=== PATIENT | female | born 1955 | race Caucasian/White ===

== ENCOUNTER 2017-09-30 13:30 | Emergency (ER) | payer MEDICARE ==
[~2017-09-30] VITALS: Ht 167.6 cm; Wt 136.1 kg
--- NOTE | 2017-09-30 14:40 | EKG ---
[address] [id number] Test Date: 2017-09-30 Test Time: 14:19:18 Pat Name: CLAUDIA MENDOZA Department: Room: Gender: F [facility] Supervisor: : 1955 Requested By: SIMON VALERA Order Number: [id number] Reading MD: Measurements Intervals [place] Rate: 91 P: 37 NV: 134 QRS: 41 QRSD: 80 T: 50 QT: 340 QTc: 420 Interpretive Statements SINUS RHYTHM QRS(T) CONTOUR ABNORMALITY CONSIDER ANTEROLATERAL MYOCARDIAL DAMAGE POSSIBLY ABNORMAL ECG RI6.01 No previous ECG available for comparison
--- NOTE | 2017-09-30 15:04 | RAD ---
Exam: AP portable chest History: Cough. Comparison: None. Findings: Patient is rotated. The heart and mediastinal structures are within normal limits for size. Lungs are without infiltrate. No pleural effusion or pneumothorax is identified. There is deformity and decreased volume of the proximal left humerus, presumably chronic. Impression: 1. No acute cardiopulmonary process. 2. Deformity of the proximal left humerus, might be due to a remote traumatic injury. Recommend clinical correlation. Electronically signed by: Marcus Novak MD (09/30/2017 3:00 PM) [place] [id number]
[2017-09-30] MEDS ORDERED: HYDROcodone/APAP 10/325 1 TAB TABLET PO ONE (15:45)
--- NOTE | 2017-09-30 16:35 | PHYS DOC ---
Past History Past Medical History: Anxiety, Depression, GERD, High Cholesterol, Hypertension , Hypothyroid Past Surgical History: Cholecystectomy, Alcohol Use: None Drug Use: None Adult General Chief Complaint Chief Complaint: PSYCH EVALUATION HPI HPI Patient is a 62 year old F who presents from rehabilitation facility after having a tibial fracture surgically repaired last month, for psychiatric evaluation due to suicidal ideations. She states that yesterday she became impulsive due to multiple recent family issues. She states that she used fingernail clippers to try to cut her wrist. She states that they were so dull that there was not even a elena made on her wrist. She currently is not full weight-bearing due to her tibia fracture. Review of Systems Review of Systems Constitutional: Denies fever or chills [] Eyes: Denies change in visual acuity, redness, or eye pain [] HENT: Denies nasal congestion or sore throat [] Respiratory: Denies cough or shortness of breath [] Cardiovascular: No additional information not addressed in HPI [] GI: Denies abdominal pain, nausea, vomiting, bloody stools or diarrhea [] : Denies dysuria or hematuria [] Musculoskeletal: Denies back pain Integument: Denies rash or skin lesions [] Neurologic: Denies headache, focal weakness or sensory changes [] Endocrine: Denies polyuria or polydipsia [] All other systems were reviewed and found to be within normal limits, except as documented in this note. Family History Family History pertinent medical history was reported Current Medications Current Medications Current Medications Medications (Trade) Dose Ordered Sig/[facility] Start Time Stop Time Status Last Admin Dose Admin Acetaminophen/ Hydrocodone Bitart (Lortab 10/325) 2 tab 1X ONCE 09/30/17 15:45 09/30/17 15:46 DC 09/30/17 15:47 2 TAB Allergies Allergies Allergies Coded Allergies Type Severity Reaction Last Updated Verified Macrolide Antibiotics Allergy Intermediate 09/30/17 Yes clarithromycin Allergy Unknown 09/30/17 Yes arnol Allergy Unknown 09/30/17 Yes naproxen Allergy Unknown 09/30/17 Yes Physical Exam Physical Exam Constitutional: Well developed, well nourished, no acute distress, non-toxic appearance. [] HENT: Normocephalic, atraumatic, bilateral external ears normal, oropharynx moist, no oral exudates, nose normal. [] Eyes: EOMI, conjunctiva normal, no discharge. [] Neck: Normal range of motion, no tenderness, supple, no stridor. [] Cardiovascular:Heart rate regular rhythm, Lungs & Thorax: Bilateral breath sounds clear to auscultation [] Abdomen: Bowel sounds normal, soft, no tenderness, no masses, no pulsatile masses. [] Skin: Warm, dry, no erythema, no rash. [] Back: No tenderness, no CVA tenderness. [] Extremities: no cyanosis, no clubbing, ROM intact, no edema. [] Right leg surgical scars clean dry and intact without signs of infection Neurologic: Alert and oriented X 3, normal motor function, normal sensory function, no focal deficits noted. [] Psychologic: Affect normal, judgement normal, mood normal. [] Current Patient Data Vital Signs Vital Signs Date Time Temp Pulse Resp B/P (MAP) Pulse Ox O2 Delivery O2 Flow Rate FiO2 09/30/17 15:47 20 95 09/30/17 13:30 98.3 93 Room Air Lab Results Outside labs reviewed from [facility]. Reports were scanned into her chart. Please review them for specifics Radiology/Procedures Radiology/Procedures Chest x-ray Impressions: No acute disease Course & Med Decision Making Course & Med Decision Making Pertinent Labs and Imaging studies reviewed. (See chart for details) Care was transferred to Dr. Chavira pending psych evaluation Patient care transferred to [facility] at 1804 follow-up with psych evaluation. Patient was evaluated by Dr. Nash at 2148 and determined that she is not contraceptive and can be discharged to rehabilitation facility. Dragon Disclaimer Dragon Disclaimer This electronic medical record was generated, in whole or in part, using a voice recognition dictation system. Departure Departure: Impression: Primary Impression: Encounter for psychological evaluation Disposition: HOME, SELF-CARE (have possibility at) Condition: STABLE Additional Instructions: Follow-up with rehabilitation facility and your physician instruction SIMON VALERA MD Sep 30, 2017 16:35 SASCHA CHAVIRA MD Sep 30, 2017 22:04
[2017-09-30 18:27] LABS: CLARITY,URINE HAZY; COLOR,URINE STRAW; GLUCOSE,URINE NEG (NEG)
[2017-09-30 18:28] LABS: BILIRUBIN,URINE NEG (NEG)
[2017-09-30 18:29] LABS: BACTERIA,URINE MANY /HPF (0-FEW); NITRITE,URINE POS (NEG); SQUAMOUS EPITHELIAL CELL,UR MANY /LPF; UROBILINOGEN,URINE 0.2 mg/dL (0.2 mg/dL)
[2017-09-30 22:30] VITALS: BP 137/87
== END 2017-09-30 22:15 | disposition home or self-care (01) ==
LOC: ER 13:30
DX: Z00.8 Encounter for other general examination (principal); R45.851 Suicidal ideations; E03.9 Hypothyroidism, unspecified; E78.00 Pure hypercholesterolemia, unspecified; F32.9 Major depressive disorder, single episode, unspecified; F41.9 Anxiety disorder, unspecified; I10 Essential (primary) hypertension; K21.9 Gastro-esophageal reflux disease without esophagitis; Z88.1 Allergy status to other antibiotic agents; Z91.018 Allergy to other foods; Z88.8 Allergy status to other drugs, medicaments and biological substances
CPT/HCPCS: 51701; 71045; 81001; 93005; 99285-25